=== PATIENT | male | born 1970 | race African-American/Black ===

== ENCOUNTER 2019-03-23 00:33 | Inpatient (IN) | payer OTHER ==
[2019-03-09 09:16] LABS: PLATELET COUNT, AUTOMATED 235 K/uL (150-450)
--- NOTE | 2019-03-09 10:32 | EKG ---
FACILITY: [facility] - [place] PATIENT NAME: IMTIAZ AGUERO : [id number] MR: [id number] V: [id number] EXAM DATE: ORDERING PHYSICIAN: BRETT PAYNE TECHNOLOGIST: Test Reason : pre-op Blood Pressure : / mmHG Vent. Rate : 063 BPM Atrial Rate : 063 BPM P-R Int : 190 ms QRS Dur : 098 ms QT Int : 398 ms P-R-T Axes : 065 066 034 degrees QTc Int : 407 ms Normal sinus rhythm Normal ECG No previous ECGs available Confirmed by ALYSON HERNANDEZ ([id number]) on 03/09/2019 6:05:59 PM Referred By: Confirmed By:ALYSON HERNANDEZ
[2019-03-23] VITALS (11 sets, daily range): BP systolic 116–157; BP diastolic 85–109
[~2019-03-23] VITALS: Ht 205.7 cm; Wt 137.0 kg
[~2019-03-23 00:33] MED LIST: ESOM40CA42 PO; OMEP-126 PO; OND4 PO; PAN40 PO; PRO25 PO
[2019-03-23] MEDS ORDERED: KETAMINE HCL-NS 50 MG/5 ML SYR ONE (07:23)
[2019-03-23] MEDS ORDERED: ONDANSETRON 4 MG/2 ML VIAL ONE (11:21)
[2019-03-23] MEDS ORDERED: PROPOFOL EMUL(*) 10MG/ML 20 ML 20 ML ONE (11:21)
[2019-03-23] MEDS ORDERED: LIDOCAINE MPF 1% 5 ML VIAL ONE (11:21)
[2019-03-23] MEDS ORDERED: fentaNYL CITR 100 MCG/2 ML AMP ONE (11:21)
[2019-03-23] MEDS ORDERED: DEXAMETHASONE SOD 4 MG/ML VIAL ONE ×2 (11:21→13:56)
[2019-03-23] MEDS ORDERED: NS 0.9% 20 ML SDV 20 ML ONE (11:40)
[2019-03-23] MEDS ORDERED: FAMOTIDINE 20 MG TAB PO ONE (11:55)
[2019-03-23] MEDS ORDERED: GLYCOPYRROLATE 0.2MG/ML 1 ML INJ ONE (13:46)
[2019-03-23] MEDS ORDERED: TRANEXAMIC AC 1000 MG/10ML SDV 1,000 MG in DEXTROSE 5% 50 ML BAG 50 ML IV ONE (14:45)
[2019-03-23] MEDS ORDERED: NORMOSOL R SOLN(*) 1000 ML BAG 1,000 ML IV PRN (14:45)
[2019-03-23] MEDS ORDERED: LIDOCAINE/SOD BICARB 8.4% SYR ID ONE (14:45)
[2019-03-23] MEDS ORDERED: ROPIVACAINE/EPI/CLONIDINE/KET 50 ML SYRINGE INJ ONE (14:45)
[2019-03-23] MEDS ORDERED: ceFAZolin(*) 1 GM VIAL 3 GM in NS(*) 0.9% 100 ML BAG 100 ML IVPB ONE (14:45)
[2019-03-23] MEDS ORDERED: CELECOXIB 200 MG CAP PO ONE (14:45)
[2019-03-23] MEDS ORDERED: MIDAZOLAM 2 MG/2 ML VIAL IVP PRN (14:45)
[2019-03-23] MEDS ORDERED: ACETAMINOPHEN 500 MG TAB PO ONE (14:45)
[2019-03-23] MEDS ORDERED: PREGABALIN 150 MG CAPSULE PO ONE (14:45)
[2019-03-23] MEDS ORDERED: BACITRACIN 50000 UNIT/VIAL 100,000 UNIT in NS 0.9% 3000 ML IRRIGATION BAG 3,000 ML IR ONE (14:45)
[2019-03-23] MEDS ORDERED: ceFAZolin(*) 2GM/D5W 50ML 50 ML IVPB ONE (14:45)
[2019-03-23] MEDS ORDERED: HYDROmorphone HCL 2 MG/ML SDV ONE (15:44)
[2019-03-23] MEDS ORDERED: MAGNESIUM CITRATE 300 ML BTL PO PRN (17:30)
[2019-03-23] MEDS ORDERED: LR 1000 ML BAG 1000 ML IV PRN (17:30)
[2019-03-23] MEDS ORDERED: ONDANSETRON 4 MG/2 ML VIAL IVP PRN (17:30)
[2019-03-23] MEDS ORDERED: ZOLPIDEM TARTRATE 5 MG TAB PO PRN (17:30)
[2019-03-23] MEDS ORDERED: FLUSH 10 ML SYR IVP PRN (17:30)
[2019-03-23] MEDS ORDERED: diphenhydrAMINE 25 MG CAP PO PRN (17:30)
[2019-03-23] MEDS ORDERED: diphenhydrAMINE 50 MG/ML VIAL IVP PRN (17:30)
[2019-03-23] MEDS ORDERED: BISACODYL 10 MG SUPP PR PRN (17:30)
[2019-03-23] MEDS ORDERED: PROMETHAZINE 25 MG/ML 1 ML AMP IVP PRN (17:30)
[2019-03-23] MEDS ORDERED: MAGNESIUM HYDROXIDE* 30ML UDCP PO PRN (17:30)
--- NOTE | 2019-03-23 17:35 | RADIOLOGY IMAGING REPORT ---
FACILITY: [facility] - [place] PATIENT NAME: Christian Krishnamurthy : 1970 MR: [id number] V: [id number] EXAM DATE: ORDERING PHYSICIAN: BRETT PAYNE TECHNOLOGIST: [place] [facility] [place] Krishnamur[place] : 1970 Visit/Account:[id number] Date of Sevice: 03/23/2019 Study: KNEE LIMITED LEFT Indication: Status post knee replacement Comparison study: None available Findings: AP and lateral views of the left knee demonstrates patient status post total knee replaceme nt. The metallic portions of the knee replacement appear to be unremarkable. There are postoperative changes present. There is no evidence of acute bony abnormality. IMPRESSION: Status post left total knee replacement. Report Dictated By: Nelson Schilling at 03/23/2019 5:23 PM Report E-Signed By: Nelson Schilling at 03/23/2019 5:28 PM WSN:[id number]
--- NOTE | 2019-03-23 17:50 | OPERATIVE REPORT 1 ---
EVENT DATE: March 23, 2019 SURGEON: Deonte Zafar MD ANESTHESIOLOGIST: Kalia Whiteside MD ANESTHESIA: Spinal plus general. MEDICAL CLERICAL ASSISTANT: MILDRED Moore PREOPERATIVE DIAGNOSES 1. Right knee osteoarthritis. 2. Subluxation of the tibia on the femur. 3. Significant angular deformity. 4. Retained screw in the tibia. POSTOPERATIVE DIAGNOSES 1. Right knee osteoarthritis. 2. Subluxation of the tibia on the femur. 3. Significant angular deformity. 4. Retained screw in the tibia. PROCEDURES PERFORMED 1. Right total knee arthroplasty, which deserves a modifier -22 secondarily due to the fact of the deformity as well as the amount of subluxation of the tibia it did take about twice or even longer of the surgeon's time and effort in order to do the total knee arthroplasty compared to a standard total knee arthroplasty. 2. Removal of implant deep of the screw. FINDINGS The patient had a significant amount of arthritic changes associated with the knee itself and subluxation of the tibia and significant valgus deformity which necessitated the modifier -22, but was amenable for total knee replacement with a revision stem. ESTIMATED BLOOD LOSS About 300 mL. DRAINS None. COMPLICATIONS None. TOURNIQUET TIME 24 minutes, just up while we were cementing. IMPLANTS USED DePuy size 10 posterior stabilized femur with an 8 thickness, 10 rotating platform tibial insert, an 8 rotating platform tibial revision component, with a 20 x 60 press-fit stem, and then a 41 domed patella. SPECIMENS None. INDICATIONS AND HISTORY This patient is a 49-year-old male who had had multiple operations on his left knee and has significant angular deformity and had pain and problems associated with it. It had continued to give him trouble and issues associated with it, and so he wanted to go ahead with a total knee replacement. We went over the risks and benefits associated with this. We told him this was not a normal knee replacement secondarily due to the fact it was an angular deformity as well as his significant wear on the lateral side and also his problems with his patella previously and prior surgeries, and that it may take some revision components in order to do this, and there is no guarantee that it makes him better and may have clicking and popping associated with it. After discussion of those risks and benefits, informed consent was obtained at the last clinic visit, and we got him set up to do this today. DESCRIPTION OF PROCEDURE As the patient was brought into the operating room, he and the procedure were both verified. He was placed supine on the operating table and induced and intubated after being given the spinal by Anesthesia. The left lower extremity was then prepped and draped in the usual fashion, and a timeout was observed verifying the correct patient and procedure. The standard incision was made over the left knee utilizing his old incisions. We were able to go through the skin and subcutaneous tissue until we got down to the medial parapatellar approach. Once we got down to the medial parapatellar approach, we were able to get down to the cartilage itself and sublux the patella to the outside. We did remove a lot of scar tissue in this area, and it did take a significant increase in time to get through the dissection through this area. We also utilized the C-arm in order to make a small олег incision just lateral to the patellar tendon in order to remove the screw. Unfortunately, the screw did not come straight out. It did get stuck and was spinning and was not grabbing on the threads, and so we did have to put pressure on it in order to pull it all the way through, but we were able to get it out and leave the tibial cortex intact. I was then able to progress with the total knee replacement, which we were able to sublux the patella and then high flex the knee. I was then able to remove the majority of the ACL and PCL and some of the osteophytes in this area, then drilled the intramedullary guide from the Att[employer] system in order to get down to the femoral canal. Once in the femoral canal, we were able to use the 5 and 9 cutting blocks. Unfortunately, this needed to have a little bit more take, and so we did take 2 mm more after making the initial cut on the distal femur, making it so essentially 11 mm were cut to even out the distal femur secondarily due to the wear on the lateral side. This was then followed by placement of the four-in-one cutting block for the 10 block. After pinning that in place, we were then able to make the anterior and posterior cuts, remove the pins, and then make the chamfer cuts without any difficulty. This then allowed us to remove a lot of the osteophytes on the medial and lateral sides. I then put in the notch cutting block without any major difficulty and then cut the notch without any issues. I then removed a lot of the posterior osteophytes off the posterior femur and was able to release some of the capsule on here in order to get him out to full extension. I then turned attention to the proximal tibia where I subluxed the tibia forward. I was then able to remove the remainder of the posterior aspects of the medial and lateral menisci and what was left in this area and the rest of the PCL once we subluxed this forward. I was then able to drill intramedullary, again using the intramedullary guide from the [employer] system, taking the minimal amount off the lateral tibia. I then cut the proximal tibia without any major difficulty and then used the spacing blocks in order to make sure that we had good gap balance associated with it. Once we verified that we had good gap balance, I then prepped the tibia by drilling and reaming down the central canal after making sure that it fit a size 8 revision tibia. Unfortunately, this was the biggest revision tibia that comes in the set. I then was able to drill downward associated with this and ream all the way up to a 20 x 60 stem for the press-fit stem. We trialed the components then with the trial stem and then the 8 mm polyethylene. This looked significantly better in terms of flexion and extension. It moved very well, went out to full extension, and had no signs of instability with the varus or valgus exam. I then went to the patella again and then removed a lot of the posterior osteophytes and shelled out the heterotopic ossification that had formed on this area. I then was able to prep the patella without any difficulty and cut off the inferior portion. Once I was able to prep this, I then sized it to a 41 patella. We tried the anatomic first, but it had a little bit more clicking than the round, and so therefore, we put on the round, and it had a better contour and feel associated with it. We then put up the tourniquet after using an Esmarch and then removed all the components, washed everything out, drilled a couple holes in the hard parts of the bone, and then we were able to cement the components in without any difficulty. I then use Irrisept in the irrigation, which I had throughout the case, using a pulsatile lavage. Once the cement hardened, I was then able to close the medial parapatellar approach as well as the area where we had taken the screw out with a #2 Quill. This was then followed by 2-0 Vicryl in the fat layer and then a 2-0 Stratafix in the skin and then a subcuticular 4-0 running Monocryl with a bio-occlusive dressing over the top. Tourniquet was only up for about 24 minutes during cementation and press- fitting of the components. The patient was awakened, extubated, and transferred to PACU in stable condition. VERITO
[2019-03-23] MEDS: oxyCODON/ACET (*)5/325MG (CII) 1 TAB TAB PO PRN ×2 (19:06→23:43)
[2019-03-23] MEDS: HYDROmorphone HCL 2 MG/ML SDV IVP PRN ×2 (19:44→21:50)
[2019-03-23] MEDS ORDERED: ASPIRIN 325 MG TAB PO SCH (21:00)
[2019-03-23] MEDS ORDERED: NS(*) 0.9% 500 ML BAG 500 ML ONE (21:22)
[2019-03-23] MEDS: ceFAZolin(*) 2GM/D5W 50ML 50 ML IVPB SCH (21:29)
--- NOTE | 2019-03-23 21:45 | Hospitalist Consultation ---
History of Present Illness Requesting Physician Dr Zafar Reason for Consult medical management Chief Complaint TKA History of Present Illness 49M admitted after TKA. PMHx significant for GERD. Denies any concerns at this time, tolerated procedure well. History Problems: (1) CLARE (obstructive sleep apnea) (2) Acid reflux Home Meds Reported Medications Omeprazole (OMEPRAZOLE) 20 Mg Capsule.dr, 1 CAP PO QDAY, CAP 03/19/19 Discontinued Reported Medications Pantoprazole Sod (Protonix) 40 Mg Tabec, 40 MG PO QDAY 02/13/08 Promethazine Hcl (Phenergan) 25 Mg Tab, 25 MG PO Q8H 1 NAUSEA VOMITING 02/13/08 Pantoprazole Sod (Protonix) 40 Mg Tabec, 40 MG PO QDAY 11/06/07 Allergies: Coded Allergies: No Known Allergies (Verified Allergy, Mild, 03/19/19) Patient History: Patient reports no known family medical history. Smoking Status: Light Tobacco Smoker Caffeine Intake: Tea Caffeine/Cups Per Day: 1 CUP/DAY Hx Alcohol Use: No Hx Substance Use Disorder: No Social Drug Use: Never History of IV Drug Use: No Review of Systems All Systems Reviewed/Normal: Yes, Except as Noted Respiratory: No Shortness of Breath Gastrointestinal: No Nausea, No Vomiting Musculoskeletal: Pain Exam Vital Signs Vital Signs Date Time Temp Pulse Resp B/P (MAP) Pulse Ox O2 Delivery O2 Flow Rate FiO2 03/23/19 20:00 95 Nasal Cannula 2.0 03/23/19 20:00 72 153/109 (124) 03/23/19 18:06 97.5 12 General Appearance: Alert, Awake, No Acute Distress Neuro: No Gross deficits Cardiovascular: Normal Rhythm & Peripheral Pulses Respiratory: No Respiratory Distress GI: Abd Soft and Non-Tender Extremities: Soft and Non Tender, Warm, Pulses, Perfused Assessment and Plan Problems: (1) Osteoarthritis Assessment & Plan: Post TKA, will begin 325 ASA for DVT prophylaxis. (2) CLARE (obstructive sleep apnea) Assessment & Plan: Does not currently use prescribed CPAP. O2 PRN while inpatient as he declines CPAP here. (3) Acid reflux Assessment & Plan: Chronic PPI, will use Protonix while inpatient. Venous Thromboembolism Antithrombotics Is Pt On Any Antithrombotics?: Yes Exam Sepsis Risk: No Definite Risk RUSHING NEGRO TEJEDA DO Mar 23, 2019 21:45
[2019-03-24] MEDS: oxyCODON/ACET (*)5/325MG (CII) 1 TAB TAB PO PRN ×2 (04:02→08:50)
[2019-03-24 04:04] VITALS: BP 119/84
[2019-03-24] MEDS: ceFAZolin(*) 2GM/D5W 50ML 50 ML IVPB SCH (04:56)
[2019-03-24 07:59] VITALS: BP 119/84
[2019-03-24] MEDS ORDERED: ASPI-757 PO (08:26)
[2019-03-24] MEDS ORDERED: PANTOPRAZOLE SOD 40 MG TABEC PO SCH (09:00)
[2019-03-24] MEDS ORDERED: OXYC-865 PO (09:13)
--- NOTE | 2019-03-24 09:48 | Hospitalist Progress Note ---
Subjective Progress Notes Subjective He was admitted s/p knee replacement. He had no acute events overnight. Patient Complains of: Cardiovascular: No: Chest Pain Respiratory: No: Shortness of Breath Physical Exam Vital Signs Date Time Temp Pulse Resp B/P (MAP) Pulse Ox O2 Delivery O2 Flow Rate FiO2 03/24/19 07:59 97.7 60 16 119/84 (96) 98 Nasal Cannula 2.0 Intake and Output 03/24/19 07:02 Intake Total 3100 ml Output Total 700 ml Balance 2400 ml Intake Oral 1200 ml IV Total 1900 ml Output Emesis 700 ml # Voids 1 # Bowel Movements 0 # Emeses 1 General Appearance: Alert, Awake, No Acute Distress, Afebrile Neuro: No Gross deficits Cardiovascular: Regular Rate and Rhythm Respiratory: No Respiratory Distress, Clear to Auscultation GI: Soft and Non-Tender Psych: Alert & Oriented X3, Appropriate Mood & Affect Result Diagram: 03/24/19 0539 Assessment and Plan Problems: (1) Osteoarthritis Assessment & Plan: Post TKA, will begin 325 ASA for DVT prophylaxis. (2) CLARE (obstructive sleep apnea) Assessment & Plan: Does not currently use prescribed CPAP. O2 PRN while inpatient as he declines CPAP here. He will resume CPAP at home. (3) Acid reflux Assessment & Plan: Chronic PPI, will use Protonix while inpatient. Exam Sepsis Risk: No Definite Risk FRANCY OVIEDO FIELD STAFF Mar 24, 2019 09:48
--- NOTE | 2019-03-24 14:57 | NUR ---
Physical Therapy Impression PT eval complete. Pt safe for DC when medically appropriate. Physical Therapy Goals Patient's Goals
== END 2019-03-24 11:50 | disposition home or self-care (01) | DRG 470 ==
LOC: OR 00:33 → OBSVTOIN 18:05 → MED 18:05
PROVIDERS: ADMIT Orthopaedic Surgery; ATTEND Orthopaedic Surgery
PROC: 0SRC0J9 Replacement of Right Knee Joint with Synthetic Substitute, Cemented, Open Approach (ICD-10-PCS; principal; 2019-03-23 13:37)
DX: M17.11 Unilateral primary osteoarthritis, right knee (principal); M23.8X1 Other internal derangements of right knee; K21.9 Gastro-esophageal reflux disease without esophagitis; G47.33 Obstructive sleep apnea (adult) (pediatric); F17.200 Nicotine dependence, unspecified, uncomplicated; Z79.899 Other long term (current) drug therapy
CPT/HCPCS: 36415; 81001; 82040; 82247; 82310; 82374; 82435; 82565; 82947; 84075; 84132; 84155; 84295; 84450; 84460; 84520; 85014; 85018; 85025; 85610; 86850; 86900; 86901; 93005; 97161; J0690; J1100; J1170; J2001; J2250; J2405; J2704; J3010; J3490; J7040; J7050; J7060